=== PATIENT | male | born 1980 | race Caucasian/White ===

== ENCOUNTER 2024-01-12 22:35 | Emergency (ER) | payer OTHER ==
[2024-01-12 23:05] LABS: Absolute Eosinophils 0.3 K/uL (0-0.5); Absolute Lymphocytes (CBC) 2.2 K/uL (0.7-4.9); Absolute Monocytes 0.5 K/uL (0.1-1.3); Absolute Neutrophil 3.9 K/uL (1.8-8.0); Basophils % 0.4 % (0-1.3); Hematocrit 44.2 % (39.6-49.0); MCH 30.5 pg (27.0-35.0); MCV 89.7 fL (80-100); MPV 9.3 fL (7.6-11.3); Monocytes % 7.4 % (3.3-12.3); Neutrophils % 56.2 % (41.7-73.7); Nucleated Red Blood Cells % 0.2 % (0-0); PT Prothrombin Time 12.8 SECONDS (9.4-12.5); Platelets 190 thou/uL (152-406); Protime INR 1.17; RBC Red Blood Cell Count 4.92 M/uL (4.33-5.43); Red Cell Distribution Width 14.6 % (12.1-15.2)
[2024-01-12 23:27] LABS: ALT/SGPT 66 U/L (16-61); AST/SGOT 30 U/L (15-37); Albumin 3.7 g/dL (3.4-5.0); Alkaline Phosphatase 112 U/L (45-117); Anion Gap 11.6 mEq/L (5.0-15.0); BUN Blood Urea Nitrogen 21 mg/dL (7-18); Bicarbonate 24 mEq/L (21-32); Bilirubin Total 0.5 mg/dL (0.2-1.0); Globulin 3.6 g/dL (2.3-3.5); Glomerular Filtration Rate 51 ml/min (=/>90); Glucose Level 161 mg/dL (74-106); Magnesium 1.9 mg/dL (1.6-2.4); NT PRO-BNP 11 pg/mL (<125); Potassium 3.6 mEq/L (3.5-5.1); Protein, Total 7.3 g/dL (6.4-8.2); Sodium Level 141 mEq/L (136-145)
[2024-01-12 23:30] LABS: Bilirubin Direct < 0.2 mg/dL (0-0.2); Bilirubin Indirect, Calculated 0.3 mg/dL (0.2-0.8)
[2024-01-13] MEDS ORDERED: ONDANSETRON 4 MG/2 ML VIAL ONE (00:05)
--- NOTE | 2024-01-13 00:40 | ER ---
Nurse's Notes [facility] Name: Ethan Iniguez Age: 43 yrs Sex: Male : 1980 Arrival Date: 01/12/2024 Time: 22:35 Bed 3 Private MD: Diagnosis: Chest pain, unspecified Presentation: 01/11 22:40 Chief complaint: Patient states: shortness of breath 1hr HAND [employer] he was recently discharge rg5 from hospital for pulmonry embolism. Coronavirus screen: Vaccine status: Patient reports having had a previously documented Covid positive illness. Client denies travel out of the [place] in the last 14 days. Ebola Screen: Patient negative for fever greater than or equal to 101.5 degrees Fahrenheit, and additional compatible Ebola Virus Disease symptoms. Initial Sepsis Screen: Does the patient meet any 2 criteria? No. Patient's initial sepsis screen is negative. Does the patient have a suspected source of infection? No. Patient's initial sepsis screen is negative. Risk Assessment: Do you want to hurt yourself or someone else? Patient reports no desire to harm self or others. Onset of symptoms was January 12, 2024. 22:40 Method Of Arrival: [facility]: [facility] rg5 22:40 Acuity: JANIS 3 rg5 23:08 Care prior to arrival: IV initiated. 20 GA, in the right antecubital area, Oxygen bm8 administered. via a non-rebreather mask. Triage Assessment: 22:48 General: Appears comfortable, Behavior is calm, cooperative, appropriate for age. Pain: rg5 Complains of pain in head Pain currently is 7 out of 10 on a pain scale. Quality of pain is described as aching, Pain began 1 hour ago. Is intermittent. EENT: No deficits noted. Neuro: Level of Consciousness is awake, alert, obeys commands, Oriented to person, place, time. Cardiovascular: Denies chest pain, Capillary refill < 3 seconds. Respiratory: Reports shortness of breath at rest Airway is patent Trachea midline Respiratory effort is even, Respiratory pattern is regular. GI: Abdomen is round. : No signs and/or symptoms were reported regarding the genitourinary system. Derm: Skin is intact, Skin is dry, Skin is pink, warm \T\ dry. Musculoskeletal: Range of motion: intact in all extremities. 23:13 Respiratory: rg5 Historical: - Allergies: 22:48 No Known Allergies; rg5 - PMHx: 22:48 pulmonary embolism; rg5 - Immunization history:: Adult Immunizations up to date. - Infectious Disease History:: Denies. - Social history:: Smoking status: Patient/guardian denies using tobacco products. Screenin:40 [facility] ED Fall Risk Assessment (Adult) History of falling in the last 3 months, rg5 including since admission No falls in past 3 months (0 pts) Confusion or Disorientation No (0 pts) Intoxicated or Sedated No (0 pts) Impaired Gait No (0 pts) Mobility Assist Device Used No (0 pt) Altered Elimination No (0 pt) Score/Fall Risk Level 0 - 2 = Low Risk. Abuse screen: Denies threats or abuse. Nutritional screening: No deficits noted. Tuberculosis screening: No symptoms or risk factors identified. Assessment: 23:50 Reassessment: Patient and/or family updated on plan of care and expected duration. Pain ha1 level reassessed. Patient is alert, oriented x 3, equal unlabored respirations, skin warm/dry/pink. Patient states feeling better. Patient states symptoms have improved. 01/12 01:00 Reassessment: Patient and/or family updated on plan of care and expected duration. Pain ha1 level reassessed. Patient is alert, oriented x 3, equal unlabored respirations, skin warm/dry/pink. 02:23 Reassessment: Patient and/or family updated on plan of care and expected duration. Pain ha1 level reassessed. Patient is alert, oriented x 3, equal unlabored respirations, skin warm/dry/pink. Vital Signs: 01/11 22:40 BP 133 / 95; Pulse 96; Resp 19; Temp 98; Pulse Ox 98% on 4 lpm NC; Weight 104.33 kg; rg5 Height 6 ft. 2 in. ; Pain /10; 23:55 BP 154 / 95; Pulse 77; Resp 20; Pulse Ox 97% on 5 lpm NC; ha1 01/12 01:00 BP 136 / 92; Pulse 72; Resp 17 S; Pulse Ox 98% on 4 lpm NC; ha1 02:10 BP 126 / 80; Pulse 73; Resp 19 S; Pulse Ox 99% on R/A; ha1 01/11 22:40 Body Mass Index 29.53 (104.33 kg, 187.96 cm) rg5 01/11 22:40 Pain Scale: Adult rg5 [place] Coma Score: 02:38 Eye Response: spontaneous(4). Motor Response: obeys commands(6). Verbal Response: bm8 oriented(5). Total: 15. ED Course: 01/11 22:38 Patient arrived in ED. vc1 22:39 César Sutherland MD is Attending Physician. sp3 22:40 Patient has correct armband on for positive identification. Bed in low position. Call rg5 light in reach. Side rails up X 1. 22:40 Inserted saline lock: 18 gauge in left forearm, using aseptic technique. Maintain EMS rg5 IV. Dressing intact. Good blood return noted. Site clean \T\ dry. Gauge \T\ site: 20 right AC. IV. Oxygen administration via nasal cannula \T\ 4L/min. 22:48 Triage completed. rg5 22:48 Arm band placed on right wrist. Patient placed on oxygen, on night monitor, on pulse rg5 oximetry. EKG completed in triage. Results shown to MD. EKG completed in triage. Results shown to MD. EKG completed in triage. Results shown to MD. 23:12 Rakan Campbell, JAROD is Primary Nurse. rg5 01/12 00:38 Balbir Valenzuela MD is Hospitalizing Provider. sp3 00:49 CT Chest For PE Angio In Process Unspecified. EDMS 02:38 Provided Education on: post er care. Client placed on continuous cardiac and pulse bm8 oximetry monitoring. NIBP monitoring applied. site monitor on. Pulse ox on. NIBP on. Door closed. Noise minimized. Visitors limited. Warm blanket given. Verbal reassurance given. 02:38 No provider procedures requiring assistance completed. IV discontinued, intact, bm8 bleeding controlled, No redness/swelling at site. Pressure dressing applied, x2. Administered Medications: 00:00 Drug: Ondansetron IVP 4 mg IVP once; over 2 minutes Route: IVP; Site: left forearm; ha1 00:19 Follow up: Response: No adverse reaction rg5 Medication: 01/11 22:40 VIS not applicable for this client. rg5 Outcome: 01/12 00:39 Decision to Hospitalize by Provider. sp3 02:31 Discharge ordered by . sp3 02:38 Discharged to home ambulatory, bm8 02:38 Condition: stable 02:38 Discharge instructions given to patient, Instructed on discharge instructions, follow up and referral plans. safety practices, Demonstrated understanding of instructions, follow-up care, medications, 02:40 Patient left the ED. bm8 Signatures: Dispatcher [employer] EDMS César Sutherland MD MD sp3 Jessica Akins, RN RN vc1 Stephanie Pham RN RN ha1 Erlin Kennedy RN RN bm8 Rakan Campbell RN RN rg5 Corrections: (The following items were deleted from the chart) 01/11 22:54 22:54 VIS not applicable for this client. rg5 rg5 23:10 23:08 [facility] ED Fall Risk Assessment (Adult) History of falling in the last 3 months, bm8 including since admission No falls in past 3 months (0 pts) bm8
--- NOTE | 2024-01-13 00:40 | EDPHYS ---
Physician Documentation [facility] Name: Ethan Iniguez Age: 43 yrs Sex: Male : 1980 Arrival Date: 01/12/2024 Time: 22:35 Bed 3 Private MD: ED Physician César Sutherland HPI: 01/11 22:54 This 43 yrs old Male presents to ER via EMS with complaints of chest pain, shortness of sp3 breath. 22:55 43-year-old male with history of pulmonary embolism, thoracic aortic aneurysm at 4 cm, sp3 not currently on anticoagulants due to currently "not being able to afford it". Patient last had Eliquis approximately 1 week ago. Patient states that he has been in a hypercoagulable state since his diagnosis of COVID-19 in 2019. Patient denies any cardiac history or any other medical problems. No significant past surgical history. On review of systems he denies headache, fever, neck pain, abdominal pain, vomiting, diarrhea, back pain, syncope, near syncope, focal neurological deficit, prolonged immobilization, prior DVT, known sick contacts, travel history or any other signs or symptoms on ROS at this time.. Historical: - Allergies: 22:48 No Known Allergies; rg5 - PMHx: 22:48 pulmonary embolism; rg5 - Immunization history:: Adult Immunizations up to date. - Infectious Disease History:: Denies. - Social history:: Smoking status: Patient/guardian denies using tobacco products. ROS: 22:56 Constitutional: Negative for fever, chills, and weight loss, Eyes: Negative for injury, sp3 pain, redness, and discharge, ENT: Negative for injury, pain, and discharge, Neck: Negative for injury, pain, and swelling, Cardiovascular: Negative for chest pain, palpitations, and edema, Respiratory: Negative for shortness of breath, cough, wheezing, and pleuritic chest pain, Abdomen/GI: Negative for abdominal pain, nausea, vomiting, diarrhea, and constipation, Back: Negative for injury and pain, MS/Extremity: Negative for injury and deformity, Skin: Negative for injury, rash, and discoloration, Neuro: Negative for headache, weakness, numbness, tingling, and seizure, Psych: Negative for depression, anxiety, suicide ideation, homicidal ideation, and hallucinations, Allergy/Immunology: Negative for hives, rash, and allergies, Endocrine: Negative for neck swelling, polydipsia, polyuria, polyphagia, and marked weight changes, Hematologic/Lymphatic: Negative for swollen nodes, abnormal bleeding, and unusual bruising, 22:56 All other systems are negative, Exam: 22:56 Constitutional: This is a well developed, well nourished patient who is awake, alert, sp3 and in no acute distress. Head/Face: Normocephalic, atraumatic. Eyes: Pupils equal round and reactive to light, extra-ocular motions intact. Lids and lashes normal. Conjunctiva and sclera are non-icteric and not injected. Cornea within normal limits. Periorbital areas with no swelling, redness, or edema. ENT: Nares patent. No nasal discharge, no septal abnormalities noted. External auditory canals are clear. Oropharynx with no redness, swelling, or masses, exudates, or evidence of obstruction, uvula midline. Mucous membranes moist. Neck: Trachea midline, no thyromegaly or masses palpated, and no cervical lymphadenopathy. Supple, full range of motion without nuchal rigidity, or vertebral point tenderness. No Meningismus. Chest/axilla: Normal chest wall appearance and motion. Nontender with no deformity. No lesions are appreciated. Cardiovascular: Regular rate and rhythm with a normal S1 and S2. No gallops, murmurs, or rubs. Normal PMI, no JVD. No pulse deficits. Respiratory: Lungs have equal breath sounds bilaterally, clear to auscultation and percussion. No rales, rhonchi or wheezes noted. No increased work of breathing, no retractions or nasal flaring. Abdomen/GI: Soft, non-tender, with normal bowel sounds. No distension or tympany. No guarding or rebound. No evidence of tenderness throughout. Back: No spinal tenderness. No costovertebral tenderness. Full range of motion. Skin: Warm, dry with normal turgor. Normal color with no rashes, no lesions, and no evidence of cellulitis. MS/ Extremity: Pulses equal, no cyanosis. Neurovascular intact. Full, normal range of motion. Neuro: Awake and alert, GCS 15, oriented to person, place, time, and situation. Cranial nerves II-XII grossly intact. Motor strength 5/5 in all extremities. Sensory grossly intact. Cerebellar exam normal. Normal gait. Psych: Awake, alert, with orientation to person, place and time. Behavior, mood, and affect are within normal limits. 22:56 ECG was reviewed by the Attending Physician. EKG demonstrates normal sinus rhythm at 89 bpm with normal intervals, slightly leftward axis, normal ST/T-segment's without evidence of acute ischemia. Vital Signs: 22:40 BP 133 / 95; Pulse 96; Resp 19; Temp 98; Pulse Ox 98% on 4 lpm NC; Weight 104.33 kg; rg5 Height 6 ft. 2 in. ; Pain 7/10; 23:55 BP 154 / 95; Pulse 77; Resp 20; Pulse Ox 97% on 5 lpm NC; ha1 01/12 01:00 BP 136 / 92; Pulse 72; Resp 17 S; Pulse Ox 98% on 4 lpm NC; ha1 02:10 BP 126 / 80; Pulse 73; Resp 19 S; Pulse Ox 99% on R/A; ha1 01/11 22:40 Body Mass Index 29.53 (104.33 kg, 187.96 cm) rg5 01/11 22:40 Pain Scale: Adult rg5 [place] Coma Score: 02:38 Eye Response: spontaneous(4). Motor Response: obeys commands(6). Verbal Response: bm8 oriented(5). Total: 15. MDM: 01/11 22:40 Patient medically screened. sp3 22:58 Data reviewed: vital signs, nurses notes, lab test result(s), EKG, radiologic studies. sp3 ED course: 43-year-old male with chest pain with known complicated chest pathology including PE, thoracic aneurysm. Will obtain CT scan of the chest, laboratory values and EKG. Differential diagnosis includes recurrent PE due to not being on anticoagulants, change in aneurysm, other vascular pathology, ACS, musculoskeletal, pulmonary pathology, among others. I am not highly suspicious for sepsis or shock. Workup as above and disposition pending workup and patient course.. 01/12 02:26 ED course: . sp3 02:31 ED course: CT chest negative, labs normal patient resting comfortably no acute distress sp3 with oxygenation at 96% on room air while sleeping. Pain is resolved and I do not believe patient has any critical illness. We will safely discharge patient home at this time.. 01/11 22:40 Order name: Basic Metabolic Panel; Complete Time: 23:35 sp3 01/11 22:40 Order name: CBC with Diff; Complete Time: 23:35 sp3 01/11 22:40 Order name: LFT's; Complete Time: 23:35 sp3 01/11 22:40 Order name: Magnesium; Complete Time: 23:35 sp3 01/11 22:40 Order name: NT PRO-BNP; Complete Time: 23:35 sp3 01/11 22:40 Order name: PT-INR; Complete Time: 23:35 sp3 01/11 22:40 Order name: Troponin HS; Complete Time: 23:35 sp3 01/11 22:40 Order name: CT Chest For PE Angio sp3 01/11 22:40 Order name: Cardiac monitoring; Complete Time: 22:59 sp3 01/11 22:40 Order name: EKG - Nurse/Tech; Complete Time: 22:59 sp3 01/11 22:40 Order name: IV Saline Lock; Complete Time: 22:59 sp3 01/11 22:40 Order name: Labs collected and sent; Complete Time: 22:59 sp3 01/11 22:40 Order name: O2 Per Protocol; Complete Time: 22:59 sp3 01/11 22:40 Order name: O2 Sat Monitoring; Complete Time: 22:59 sp3 Administered Medications: 00:00 Drug: Ondansetron IVP 4 mg IVP once; over 2 minutes Route: IVP; Site: left forearm; ha1 00:19 Follow up: Response: No adverse reaction rg5 Disposition Summary: 01/13/24 02:31 Discharge Ordered Notes: Location: Home(01/13/24 02:31) sp3 Condition: Stable(01/13/24 02:31) sp3 Diagnosis - Chest pain, unspecified sp3 Followup: sp3 - With: Private Physician - When: Upon discharge from the Emergency Department - Reason: Continuance of care Discharge Instructions: - Discharge Summary Sheet sp3 - Nonspecific Chest Pain, Adult sp3 Forms: - Medication Reconciliation Form sp3 - Antibiotic Education sp3 - Prescription Opioid Use sp3 - Patient Portal Instructions sp3 - Leadership Thank You Letter sp3 Signatures: Dispatcher [employer] César Peoples MD MD sp3 Stephanie Pham RN RN [facility] Rakan Campbell RN RN rg5 Corrections: (The following items were deleted from the chart) 01/11 22:40 22:40 BASIC METABOLIC PANEL+C.LAB.BRZ ordered. EDMS EDMS 22:40 22:40 CBC+H.LAB.BRZ ordered. EDMS EDMS 22:40 22:40 HEPATIC FUNCTION+C.LAB.BRZ ordered. EDMS EDMS 22:40 22:40 MAGNESIUM+C.LAB.BRZ ordered. EDMS EDMS 22:40 22:40 PROBNP+C.LAB.BRZ ordered. EDMS EDMS 22:40 22:40 PROTIME (+INR)+COAG.LAB.BRZ ordered. EDMS EDMS 22:40 22:40 Troponin High Sensitivity+C.LAB.BRZ ordered. EDMS EDMS 22:41 22:41 Chest For PE Angio+CT.RAD.BRZ ordered. EDMS EDMS 01/12 00:42 00:39 Inpatient Admission sp3 sp3 00:42 00:39 Balbir Valenzuela sp3 sp3 00:42 00:39 Telemetry/MedSurg (Inpatient) sp3 sp3 00:42 00:39 Stable sp3 sp3 00:42 00:39 an acute exacerbation sp3 sp3 00:42 00:39 have worsened sp3 sp3 00:42 00:39 Standard sp3 sp3 00:42 00:39 sp3 sp3 00:42 00:39 Hypertensive urgency, volume overload, end-stage renal disease sp3 sp3
[2024-01-13 04:44] VITALS: BP 126/80; TEMP 98; O2SAT 99
--- NOTE | 2024-01-13 11:23 | RAD REPORT ---
EXAM DESCRIPTION: CT - Chest For Pe Angio - 01/13/2024 12:47 am CLINICAL HISTORY: The patient is 43 years old and is Male; CHEST PAIN TECHNIQUE: Axial computed tomographic angiography images of the chest with intravenous contrast. T his CT exam was performed using one or more of the following dose reduction techniques: automated e xposure control, adjustment of the mA and/or kV according to patient size, and/or use of iterative re construction technique. MIP reconstructed images were created and reviewed. Oblique reformatted images were created and reviewed. DLP: 529 mGy*cm COMPARISON: None. FINDINGS: PULMONARY ARTERIES: Unremarkable. No pulmonary embolism. AORTA: No acute findings. No thoracic aortic aneurysm. LUNGS: Unremarkable. No mass. No consolidation. PLEURAL SPACE: Unremarkable. No significant effusion. No pneumothorax. HEART: Unremarkable. No cardiomegaly. No significant pericardial effusion. No evidence of RV dysfunction. BONES/JOINTS: Multiple remote right rib fracture deformities. No dislocation. SOFT TISSUES: Unremarkable. LYMPH NODES: Unremarkable. No enlarged lymph nodes. LIVER: Hepatic steatosis. GALLBLADDER AND BILE DUCTS: Contracted gallbladder. IMPRESSION: 1. Multiple remote right rib fracture deformities. 2. No pulmonary embolism. No acute intrathoracic abnormality. 3. Hepatic steatosis. Electronically signed by: Denton Nova DO 01/13/2024 01:22 AM CDT 9 Due to temporary technical issues with the PACS/Fluency reporting system, reports are being signed by the in house radiologist without review as a courtesy to ensure prompt reporting. The interpreting r adiologist is fully responsible for the content of the report.
--- NOTE | 2024-01-13 12:10 | EKG ---
Test Date: 2024-01-12 Test Time: 22:35:56 Instructor Watch Assembly: MATTHEW MEASUREMENT RESULTS: Intervals: Rate: 89 [place]: 174 QRSD: 108 QT: 370 QTc: 450 [place]: P: 64 [place]: 174 QRS: -10 T: 69 INTERPRETIVE STATEMENTS: Normal sinus rhythm Normal ECG No previous ECG available for comparison Electronically Signed On 01-13-24 12:09:33 CDT by Milton Mayorga
== END 2024-01-13 02:40 | disposition home or self-care (01) ==
LOC: ER 22:35
DX: R07.9 Chest pain, unspecified (principal); R06.02 Shortness of breath; Z86.711 Personal history of pulmonary embolism
CPT/HCPCS: 93005; 85025; 80048; 36415; 83735; 85610; 80076; 84484; 83880; 71275; 96374; 99285; Q9967; J2405